=== PATIENT | male | born 1955 | race Caucasian/White ===

== ENCOUNTER → 2018-08-04 | Outpatient (CLI) | payer BC ==
[~2018-08-04] VITALS: Ht 182.9 cm; Wt 134.3 kg
[~2018-08-04] MED LIST: CATHETER FLUSH 10 ML SYR IV PRN
--- NOTE | 2018-08-04 17:18 | STRESS TEST ---
DATE OF SERVICE: 08/04/2018 EXERCISE MYOVIEW STRESS TEST REPORT REFERRING PHYSICIAN: MECCA Logan Baseline heart rate 77, baseline blood pressure is 157/102. Baseline EKG is sinus rhythm with no ischemic changes. In summary, the patient was injected with 10.02 mCi of technetium-99 Myoview and the resting images were obtained. Then, the patient started exercising with a baseline heart rate, blood pressure and EKG mentioned above. The patient was able to exercise for a total of 3 minutes and 30 seconds on standard Naif protocol. With peak exercise level, blood pressure was 226/92, heart rate was 137, which is 86% of maximum expected heart rate. EKG was showing nondiagnostic changes. During recovery, heart rate and blood pressure returned to baseline. EKG returned to baseline. The resting and stress images were reviewed and compared in the short axis, horizontal long axis, and vertical long axis views. Review of the images showed diaphragmatic attenuation with typical male pattern with no significant ischemia or infarction on SPECT images. SSS is 1, SDS 1, TID value 0.99. On the gated images, the left ventricle appeared to be normal size with normal contractility. Calculated ejection fraction 61%. CONCLUSION: 1. Poor exercise tolerance, a total of 3 minutes 29 seconds on standard Naif protocol, achieving 86% of maximum expected heart rate. 2. Severe shortness of breath with exercise, continued to have saturation over 96%. 3. Severe hypertensive response to exercise with peak blood pressure 226/92, returned to baseline during recovery. 4. Minimal nondiagnostic EKG changes with exercise returned to baseline during recovery. 5. No ischemia or infarction on SPECT images. 6. Normal left ventricular size with normal contractility. Calculated ejection fraction 61%. Job ID: [id number] DocumentID: [id number] Dictated Date: 08/04/2018 16:45:53 [employer] Date: 08/04/2018 17:18:10 Dictated By: MIGUELITO RAGSDALE MD
== END ==
LOC: CARD 11:29
PROVIDERS: ATTEND Internal Medicine Cardiovascular Disease
DX: R07.9 Chest pain, unspecified (principal); R06.09 Other forms of dyspnea; I10 Essential (primary) hypertension; E66.9 Obesity, unspecified; Z68.41 Body mass index [BMI] 40.0-44.9, adult; Z82.49 Family history of ischemic heart disease and other diseases of the circulatory system
CPT/HCPCS: 78452; 93017; 93306

== ENCOUNTER 2018-08-11 19:46 | Outpatient (CLI) | payer BC | END 2018-08-12 06:23 | disposition home or self-care (01) | LOC: SLEEP 19:46 | PROVIDERS: ATTEND Internal Medicine Cardiovascular Disease | DX: G47.33 Obstructive sleep apnea (adult) (pediatric) (principal); I47.9 Paroxysmal tachycardia, unspecified; I10 Essential (primary) hypertension; R06.83 Snoring; G47.00 Insomnia, unspecified | CPT/HCPCS: 95810 ==

== ENCOUNTER 2018-09-16 19:53 | Outpatient (CLI) | payer BC | END 2018-09-17 06:10 | disposition home or self-care (01) | LOC: SLEEP 19:53 | PROVIDERS: ATTEND Otolaryngology Otolaryngology/Facial Plastic Surgery | DX: G47.33 Obstructive sleep apnea (adult) (pediatric) (principal) | CPT/HCPCS: 95811 ==